=== PATIENT | male | born 1945 | race Caucasian/White ===

== ENCOUNTER 2016-10-05 05:09 | Emergency (ER) | payer MEDICARE, OTHER ==
[~2016-10-05] VITALS: Ht 172.7 cm; Wt 83.6 kg
[~2016-10-05 05:09] MED LIST: ASPIRIN 32325 MG/TAB PO; ASPIRIN E.C. 8181 MG PO; ATROVENT NASAL15 ML NS; BYSTOLIC5 MG PO; CRESTOR 10MG10 MG PO; FLONASE NASAL S16 GM NS; IMDUR 60MG60 MG/TAB PO; LANTUS100 U/ML SQ; LIPOFEN150 MG PO; LISINOPRIL20 MG PO; LUNESTA3 MG PO; MELATONIN1 M1 PO; METOPROLOL25 MG PO; NOVOLOG FLEX100 U/ML SQ; PLAVIX 75MG TAB75 MG PO; PROSCAR PO; SYNTHROID0.112 MG PO; SYNTHROID0.125 MG/T PO; SYNTHROID0.137 MG PO
[2016-10-05 05:14] VITALS: TEMP 96.9
[2016-10-05 05:31] LABS: BASO % 0.3 % (0.0-2.0); EOS # 0.2 (0.0-0.7); EOS % 6.1 % (0-4.0); GRAN # 2.6 (1.4-6.5); GRAN % 64.5 % (42.2-75.2); LYMPH # 0.7 (1.2-3.4); MEAN CELL VOLUME 84 fl (80.0-100.0); MEAN CORPUSCULAR HGB CONC 32 g/dl (33.0-37.0); MEAN PLATELET VOLUME 12.1 fl (7.4-10.4); MONO # 0.4 (0.1-0.6); MONO % 10.6 % (1.7-9.3); PLATELET COUNT 247 K/mm3 (130-400); RED BLOOD COUNT 4.34 M/mm3 (4.20-5.60); REDCELL DISTRIBUTION WIDTH-CV 14.5 % (11.5-14.5)
[2016-10-05 05:37] LABS: HEMATOCRIT 36.6 % (42.0-52.0); HEMOGLOBIN 11.8 g/dl (13.5-18.0); MEAN CORPUSCULAR HEMOGLOBIN 27 pg (27.0-31.0)
[2016-10-05 05:40] LABS: INR 1.1 (0.8-3.0); PROTHROMBIN TIME 12.6 SECONDS (9.7-12.8)
[2016-10-05] MEDS ORDERED: LIPITOR20 MG (05:40)
[2016-10-05 05:42] LABS: ALANINE AMINOTRANSFERASE 30 U/L (21-72); ALBUMIN 3.8 gm/dL (3.5-5.0); ALKALINE PHOSPHATASE 43 U/L (50-136); ANION GAP 10 mmol/L (7-16); BLOOD UREA NITROGEN 27 mg/dL (9-20); CALCIUM 8.8 mg/dL (8.4-10.2); CARBON DIOXIDE 25 mmol/L (22-30); CHLORIDE 100 mmol/L (98-107); GLUCOSE 182 mg/dL (74-106); LIPASE 47 U/L (23-300); POTASSIUM 4.3 mmol/L (3.4-5.0); SODIUM 135 mmol/L (137-145); TOTAL PROTEIN 6.9 gm/dL (6.4-8.2)
[2016-10-05 05:43] LABS: PARTIAL THROMBOPLASTIN TIME 26.1 SECONDS (26.0-37.0)
[2016-10-05 05:53] LABS: B-TYPE NATRIURETIC PEPTIDE 399 pg/mL (0-125)
[2016-10-05 06:07] LABS: TROPONIN-I < 0.012 ng/mL (0.000-0.034)
[2016-10-05 09:07] VITALS: BP 150/67; PULSE 56
== END 2016-10-05 09:07 | disposition home or self-care (01) ==
LOC: COL.ER 05:09
PROVIDERS: Emergency Medicine
DX: K29.60 Other gastritis without bleeding (principal); R10.12 Left upper quadrant pain; I10 Essential (primary) hypertension; E11.9 Type 2 diabetes mellitus without complications; I25.10 Atherosclerotic heart disease of native coronary artery without angina pectoris; Z95.1 Presence of aortocoronary bypass graft; Z90.49 Acquired absence of other specified parts of digestive tract
CPT/HCPCS: J3010; J7030

== ENCOUNTER → 2017-03-07 | Outpatient (CLI) | payer MEDICARE, OTHER ==
[~2017-03-07] MED LIST changes: +LIPITOR20 MG
== END ==
LOC: COL.RAD 09:29
DX: I65.23 Occlusion and stenosis of bilateral carotid arteries (principal)
CPT/HCPCS: Q9967

== ENCOUNTER → 2017-03-31 | Outpatient (CLI) | payer MEDICARE, OTHER | LOC: COL.RAD 10:49 | DX: M79.605 Pain in left leg (principal) ==

== ENCOUNTER 2019-07-05 10:24 | Day surgery (SDC) | payer MEDICARE, OTHER ==
[~2019-07-05] VITALS: Ht 172.7 cm; Wt 85.0 kg
[2019-07-05] VITALS (8 sets, daily range): BP systolic 94–128; BP diastolic 45–60; PULSE 57–72; TEMP 97.2
[~2019-07-05 10:24] MED LIST changes: +SYNTHROID 0.10.15 MG PO; -SYNTHROID0.137 MG PO
[2019-07-05] MEDS ORDERED: ELIQUIS 5MG PO (11:12)
[2019-07-05 11:13] LABS: POTASSIUM 4.5 mmol/L (3.4-5.0)
[2019-07-05] MEDS ORDERED: PRINIVIL5 MG PO (11:13)
[2019-07-05] MEDS ORDERED: NORVASC 10MG10 MG PO (11:14)
[2019-07-05 11:22] LABS: INR 1.4 (0.8-3.0); PROTHROMBIN TIME 16.1 SECONDS (9.7-12.8)
[2019-07-05 11:48] LABS: THYROID STIMULATING HORMONE 2.45 uIU/mL (0.465-4.680)
[2019-07-05] MEDS ORDERED: CORDARONE200 MG/TAB PO (12:29)
--- NOTE | 2019-07-05 13:40 | NUR ---
Bedside report received from Edward RN. Pt is sitting up in high fowlers, awake and alert, p,w,d,. sinus rhythm on monitor 40's.
--- NOTE | 2019-07-05 14:13 | NUR ---
Pt resting comfortably, he was able to take sips of water with no problem. pt now eating a bowl of soup while resting in high fowlers, no problems swallowing noted. wctm.
--- NOTE | 2019-07-05 15:15 | NUR ---
pt ready to go home. he has remained in sr 60's for most of his recovery, has been able to eat with no problem, has ambulated to br and back with steady gait. is en route. dc instructions were reviewed with patient. iv dc'd, cath intact. pt is escorted to exit via wheelchair.
== END 2019-07-05 18:00 | disposition home or self-care (01) ==
LOC: COL.CAR 10:24
PROVIDERS: Internal Medicine Interventional Cardiology
DX: I48.91 Unspecified atrial fibrillation (principal); I48.3 Typical atrial flutter; I25.10 Atherosclerotic heart disease of native coronary artery without angina pectoris; I49.5 Sick sinus syndrome; E11.9 Type 2 diabetes mellitus without complications; E78.5 Hyperlipidemia, unspecified; E03.9 Hypothyroidism, unspecified; I10 Essential (primary) hypertension; N28.9 Disorder of kidney and ureter, unspecified; G47.33 Obstructive sleep apnea (adult) (pediatric); N40.0 Benign prostatic hyperplasia without lower urinary tract symptoms; Z79.4 Long term (current) use of insulin; Z79.82 Long term (current) use of aspirin; Z79.02 Long term (current) use of antithrombotics/antiplatelets; Z95.1 Presence of aortocoronary bypass graft; Z86.73 Personal history of transient ischemic attack (TIA), and cerebral infarction without residual deficits; Z87.891 Personal history of nicotine dependence; Z82.49 Family history of ischemic heart disease and other diseases of the circulatory system; Z83.3 Family history of diabetes mellitus; Z91.013 Allergy to seafood
CPT/HCPCS: J2704; J3010; J7030

== ENCOUNTER 2019-08-16 13:47 | Inpatient (IN) | payer MEDICARE, OTHER ==
[~2019-08-16] VITALS: Ht 172.7 cm; Wt 84.1 kg
[~2019-08-16 13:47] MED LIST changes: +CORDARONE200 MG/TAB PO; +ELIQUIS 5MG PO; +NORVASC 10MG10 MG PO; +PRINIVIL5 MG PO
[2019-08-16] MEDS ORDERED: CORDARONE200 MG/TAB PO (14:14)
[2019-08-16 15:02] LABS: BASO % 0.6 % (0.0-2.0); EOS # 0.2 (0.0-0.7); EOS % 2.3 % (0-4.0); GRAN # 5.4 (1.4-6.5); GRAN % 78.4 % (42.2-75.2); HEMATOCRIT 37.7 % (42.0-52.0); HEMOGLOBIN 12.2 g/dl (13.5-18.0); LYMPH # 0.9 (1.2-3.4); LYMPH % 12.3 % (20.0-51.0); MEAN CELL VOLUME 86 fl (80.0-100.0); MEAN CORPUSCULAR HEMOGLOBIN 28 pg (27.0-31.0); MEAN CORPUSCULAR HGB CONC 32 g/dl (33.0-37.0); MEAN PLATELET VOLUME 12.6 fl (7.4-10.4); MONO # 0.4 (0.1-0.6); MONO % 6.1 % (1.7-9.3); PLATELET COUNT 264 K/mm3 (130-400); RED BLOOD COUNT 4.37 M/mm3 (4.20-5.60); REDCELL DISTRIBUTION WIDTH-CV 14.5 % (11.5-14.5)
[2019-08-16 15:07] LABS: INR 1.3 (0.8-3.0); PROTHROMBIN TIME 15.4 SECONDS (9.7-12.8)
[2019-08-16 15:35] LABS: ALBUMIN 4.3 gm/dL (3.5-5.0); BILIRUBIN,TOTAL 0.4 mg/dL (0.0-1.0); CALCIUM 9.6 mg/dL (8.4-10.2); CREATININE, serum 2.2 (0.66-1.25); POTASSIUM 4.6 mmol/L (3.4-5.0); TOTAL PROTEIN 7.2 gm/dL (6.4-8.2)
--- NOTE | 2019-08-16 20:56 | NUR ---
Report received from Dean Bell CRNA
--- NOTE | 2019-08-16 21:38 | NUR ---
Report received from Rc RAMIRES.
[2019-08-16 22:00] VITALS: BP 100/35; PULSE 59; TEMP 98.4
--- NOTE | 2019-08-16 22:00 | NUR ---
Pt arrived to surgical unit via bed from OR. Pt is awake and drowsy. No acute distress noted. VSS. Respirations even and unlabored. Lungs clear. Spo2 stable on room air. Heart rhythm regular. Pulses equal. Abdomen soft, nontender. BS+. Pt did not void in OR per report. Urinal provided to patient. IVF infusing to RH Iv site. Surgical incisions on L fingers covered with dressing- clean dry and intact. Hand is splinted. Arm is wrapped in alan wrap with sling. Pt is unable to feel L hand d/t surgical block. He is unable to move them. Hand is warm and cap refil <3 seconds. Pt able to feel pressure/touch in L upper arm, but reports tingling/numbness. Pt is alert and oriented. Denies needs at this time.
[2019-08-16 22:15] VITALS: BP 120/68; PULSE 58; TEMP 98.3
[2019-08-16 22:30] VITALS: BP 122/46; PULSE 59; TEMP 98.4
--- NOTE | 2019-08-16 22:30 | NUR ---
Pt and decided they are not comfortable having the patient go home tonight. Pt instructed that it would be a few more hours before he could meet criteria. Pt has drank some water, but denies desire to eat anything. Pt has not voided. VS remain stable.
[2019-08-16 22:45] VITALS: BP 129/57; PULSE 62; TEMP 98.4
[2019-08-16 23:15] VITALS: BP 144/61; PULSE 65; TEMP 98.4
[2019-08-16 23:45] VITALS: BP 147/55; PULSE 70; TEMP 98.3
--- NOTE | 2019-08-17 | NUR ---
Pt resting in bed. No distress noted. Pt continues to deny pain. Feeling to L arm and hand are increasing. Pt is able to move L thumb now and is able to identify area being touched. Cap refill <3 seconds. Color is appropriate. Pt voided 350 cc clear, sarwat urine in the urinal. Pt has not drank very much water. PO fluids encouraged. IVF still infusing.
[2019-08-17 00:45] VITALS: BP 155/59; PULSE 75; TEMP 98.5
[2019-08-17 01:45] VITALS: BP 149/65; PULSE 73; TEMP 98.3
--- NOTE | 2019-08-17 06:30 | NUR ---
Pt slept periodically throughout the night with minimal complaints. Post op VSS. Pt has regained feeling and movement in L hand and arm. Ice pack in place. Urinary output is adequate. Taking PO fluids appropriately. IV converted to INT at 0400. PRN pain medication given this AM. Pt rating pain 4/10 in L hand.
[2019-08-17 07:32] VITALS: BP 147/46; PULSE 81; TEMP 98.3
--- NOTE | 2019-08-17 07:47 | NUR ---
RECEIVED REPORT FROM CHIEF ENGINEER PRODUCTION NURSE. PAGED TABITHA AGUILAR (FOR DR RAHEEM SALAZAR) TO CLARIFY DISCHARGE RX MEDS AND ADDITIONAL POST OP ORDERS NEEDED. PATIENT'S AM FSBS 206, HAS NO ORDERS FOR RESUMING OF HOME INSULIN. WAITING [employer] BACK FROM [facility].
--- NOTE | 2019-08-17 07:55 | NUR ---
REPORTS RECEIVED FROM CAR STORER NURSE.
--- NOTE | 2019-08-17 08:06 | NUR ---
SPOKE WITH [facility], INFORMED OF PATIENT'S ROOM #, INFORMED OF OBSERVING HOME DISMISSAL RX AND PA WILL SEE PATIENT THIS MORNING TO WRITE RX FOR HOME. PATIENT INFORMED OF PA TO SEE HIM PRIOR TO LEAVING HOSPITAL TODAY.
--- NOTE | 2019-08-17 08:45 | NUR ---
Bedside report from Kerry RN with Ana, RN in training on day shift. Pt in bed with HOB @45*, alert, pleasant, conversational. Agree with Ana's assessment, noted no edema to BLE, donned gripper socks for safety and edu pt about fall precautions, pt verbalizes understanding. Urine character per pt report, using urinal indep at bedside. RH INT w/o infiltration/phlebitis. Lele PO well, no IVF. Sling to LUE in place, elevated on pillows, ice pack in place. Reviewed plan for discharge, pt ate breakfast, no orders for home insulin, pt's to pick him up.
--- NOTE | 2019-08-17 08:51 | NUR ---
LUE is splinted, dressing in place, thumb exposed, 2 cm scant sanguinous shadowing showing through distal end of dressing.
--- NOTE | 2019-08-17 09:56 | NUR ---
PATIENT HAD ICE TO LEFT HAND DOCTOR INSTRUCTED, REINFORCED TO PATIENT TO KEEP LEFT HAND UP MUCH POSSIBLE. OBSERVED SHADOWING/DRAINAGE TO DISTAL END OF LEFT HAND DRESSING. DRESSING TO LEFT HAND INTACT WITH CHANDNI/KERLIX WRAP TO LEFT HAND FINGERS WITH LEFT THUMB UNWRAPPED AND WIGGLES LEFT THUMB ON COMMAND. REPORTS THROBBING SENSATION TO LEFT INDEX FINGER AND HAS THROBBING DISCOMFORT TO LEFT HAND FINGERS, UNABLE TO OBSERVE LEFT HAND FINGERS DUE TO DRESSING/KERLIX-CHANDNI WRAP INTACT. REPORTS ABLE TO MOVE LEFT HAND FINGERS INDEPENDENTLY.
--- NOTE | 2019-08-17 10:37 | NUR ---
DISCHARGE INSTRUCTIONS REVIEWED WITH PATIENT AND SPOUSE ON RX MEDS NORCO/KEFLEX, POST OP FINGER AMP SX HOME CARE/WHEN TO CALL DOCTOR, CONFIRMED PATIENT UNDERSTANDING TO EXPECT CALL FROM ORTHO OFFICE FOR SCHEDULING OF FOLLOW UP APPT. REVIEWED WITH PATIENT DISCHARGE ORDERS TO RESUME HOME MEDS, HOME MEDS LIST REVIEWED FOR LAST DOSE TAKEN. NO FURTHER QUESTIONS OR CONCERNS EXPRESSED VIA PATIENT AND/OR SPOUSE. PATIENT ESCORTED OFF UNIT VIA WHEELCHAIR BY STAFF AND TO TAKE PATIENT HOME VIA PRIVATE CAR.
== END 2019-08-17 10:20 | disposition home or self-care (01) | DRG 514 ==
LOC: COL.ER 13:47 → SURG 19:34
PROVIDERS: Orthopaedic Surgery; Physician Assistant; ADMIT Emergency Medicine
PROC: 0HQGXZZ Repair Left Hand Skin, External Approach (ICD-10-PCS; 2019-08-16)
PROC: 0LQ80ZZ Repair Left Hand Tendon, Open Approach (ICD-10-PCS; principal; 2019-08-16 19:30)
PROC: 0PBV0ZZ Excision of Left Finger Phalanx, Open Approach (ICD-10-PCS; 2019-08-16 19:30)
PROC: 0X6P0Z3 Detachment at Left Index Finger, Low, Open Approach (ICD-10-PCS; 2019-08-16 19:30)
DX: S66.123A Laceration of flexor muscle, fascia and tendon of left middle finger at wrist and hand level, initial encounter (principal); S68.121A Partial traumatic metacarpophalangeal amputation of left index finger, initial encounter; S62.633A Displaced fracture of distal phalanx of left middle finger, initial encounter for closed fracture; S64.22XA Injury of radial nerve at wrist and hand level of left arm, initial encounter; S66.125A Laceration of flexor muscle, fascia and tendon of left ring finger at wrist and hand level, initial encounter; S61.217A Laceration without foreign body of left little finger without damage to nail, initial encounter; E11.42 Type 2 diabetes mellitus with diabetic polyneuropathy; E03.9 Hypothyroidism, unspecified; I10 Essential (primary) hypertension; D64.9 Anemia, unspecified; I25.10 Atherosclerotic heart disease of native coronary artery without angina pectoris; G47.33 Obstructive sleep apnea (adult) (pediatric); W27.0XXA Contact with workbench tool, initial encounter; Y93.89 Activity, other specified; Y92.69 Other specified industrial and construction area as the place of occurrence of the external cause; Y99.8 Other external cause status; Z95.1 Presence of aortocoronary bypass graft; Z79.01 Long term (current) use of anticoagulants
CPT/HCPCS: J0690; J2250; J2405; J2704; J2795; J3010; J7030; J7042

== ENCOUNTER → 2020-02-27 | Outpatient (CLI) | payer MEDICARE, OTHER | LOC: COL.VAS 12:06 | DX: M79.89 Other specified soft tissue disorders (principal) ==

== ENCOUNTER 2021-03-12 11:38 | Day surgery (SDC) | payer MEDICARE, OTHER ==
[2021-03-12] VITALS (9 sets, daily range): BP systolic 92–130; BP diastolic 52–61; PULSE 50–57; TEMP 98
[~2021-03-12] VITALS: Ht 172.7 cm; Wt 85.2 kg
[~2021-03-12 11:38] MED LIST changes: -IMDUR 60MG60 MG/TAB PO; +ISOSORBIDE MON120 MG PO; +PACERONE100 MG PO
[2021-03-12] MEDS ORDERED: TOPROL XL 50MG50 MG PO (12:40)
[2021-03-12 13:12] LABS: HEMOGLOBIN 10.8 g/dl (13.5-18.0); MEAN CELL VOLUME 85 fl (80.0-100.0); MEAN CORPUSCULAR HEMOGLOBIN 27 pg (27.0-31.0); MEAN CORPUSCULAR HGB CONC 32 g/dl (33.0-37.0); MEAN PLATELET VOLUME 12.1 fl (7.4-10.4); PLATELET COUNT 235 K/mm3 (130-400); RED BLOOD COUNT 3.96 M/mm3 (4.20-5.60); REDCELL DISTRIBUTION WIDTH-CV 14.8 % (11.5-14.5)
[2021-03-12 13:20] LABS: INR 1.1 (0.8-3.0); PROTHROMBIN TIME 12.1 SECONDS (9.7-12.8)
[2021-03-12 13:22] LABS: CALCIUM 9.2 mg/dL (8.4-10.2); CREATININE, serum 1.87 (0.66-1.25); POTASSIUM 4.6 mmol/L (3.4-5.0)
[2021-03-12 13:23] LABS: PARTIAL THROMBOPLASTIN TIME 28.4 SECONDS (26.0-37.0)
[2021-03-12 13:24] LABS: HEMATOCRIT 33.7 % (42.0-52.0)
--- NOTE | 2021-03-12 14:18 | NUR ---
SEE MERGE FOR ALL MEDICATION ADMINSTRATION TIMES, INTRA AND POST SEDATION ASSESSMENTS
--- NOTE | 2021-03-12 15:00 | NUR ---
PT back to express unit after negative heart cath. pt is alert, no distress, rt groin puncture site dressed with safeguard dressing, site is soft, cms intact distal. pt on monitor, Sinus keny on monitor. lunch ordered. call light in reach. pt received lasix prior to return from earthmoving labourer, and per dr. doll, remainder of 1/2ns 1000cc bag infusing wide open.
--- NOTE | 2021-03-12 16:30 | NUR ---
PT HAS BEEN DOING VERY WELL DURING HIS RECOVERY, HE LAID FLAT HOB 10 DEG FOR 1ST HOUR. HOB ELEVATED TO 30DEG WHEN PT'S DINNER ARRIVED. PT ATE SOME DINNER WITH NO PROBLEM. I HAVE REVIEWED DC AND FU INSTRUCTIONS WITH PT, AND HE DENIES ANY QUESTIONS. BEDREST WILL BE COMPLETE AT 1700.
--- NOTE | 2021-03-12 17:35 | NUR ---
PT escorted to exit via wheelchair at this time. Pt has been up and ambulatory since 1700 with no problem, gait is steady. Safeguard dressing was replaced with gauze dressing using sterile technique. covered with tegaderm. site remains soft, cms remains intact distal. iv dc'd with cath intact, dressing applied.
== END 2021-03-12 17:52 | disposition home or self-care (01) ==
LOC: COL.CAR 11:38
PROVIDERS: Internal Medicine Interventional Cardiology
DX: I25.10 Atherosclerotic heart disease of native coronary artery without angina pectoris (principal); I47.1 Supraventricular tachycardia; I10 Essential (primary) hypertension; I65.23 Occlusion and stenosis of bilateral carotid arteries; I48.92 Unspecified atrial flutter; E11.9 Type 2 diabetes mellitus without complications; E78.5 Hyperlipidemia, unspecified; E03.9 Hypothyroidism, unspecified; Z95.818 Presence of other cardiac implants and grafts; R94.39 Abnormal result of other cardiovascular function study; Z79.899 Other long term (current) drug therapy; Z79.890 Hormone replacement therapy; Z79.82 Long term (current) use of aspirin
CPT/HCPCS: C1760; C1769; C1887; C1894; J1644; J1940; J2250; J3010; Q9967

== ENCOUNTER 2021-09-29 07:57 | Day surgery (SDC) | payer MEDICARE, OTHER ==
[~2021-09-29] VITALS: Ht 172.7 cm; Wt 85.4 kg
[~2021-09-29 07:57] MED LIST changes: +PRINIVIL20 MG PO; -PRINIVIL5 MG PO; +PROSCAR 5MG5 MG PO; -PROSCAR PO; +TOPROL XL 50MG50 MG PO
--- NOTE | 2021-09-29 09:37 | NUR ---
Dr. Don at pt's bs. Pt is in sinus rhythm and procedure is to be cancelled per DR. Don.
[2021-09-29 10:19] VITALS: BP 133/72; PULSE 96; TEMP 97.9
[2021-09-29 10:29] LABS: POTASSIUM 4.7 mmol/L (3.5-4.5)
[2021-09-29 10:31] LABS: INR 1.7 (0.8-3.0); PROTHROMBIN TIME 18.5 SECONDS (9.7-12.8)
[2021-09-29 10:56] LABS: THYROID STIMULATING HORMONE 0.764 uIU/mL (0.350-4.940)
[2021-09-29 11:50] VITALS: BP 87/55; PULSE 82
--- NOTE | 2021-09-29 11:58 | NUR ---
bs report received from Miki RAMIRES. Pt is awake and alert resting in high fowlers on cot. reg and unlabored respirations. drinking water with no problem. call light in reach and at bedside.
[2021-09-29 12:00] VITALS: BP 102/54; PULSE 81
[2021-09-29 12:05] VITALS: BP 102/52; PULSE 82
[2021-09-29 12:20] VITALS: BP 106/63; PULSE 80
[2021-09-29 12:34] VITALS: BP 125/77; PULSE 84
--- NOTE | 2021-09-29 12:41 | NUR ---
Pt did well during his recovery. Pt is now up and about in room with steady gait. I have reviewed dc/fu and rx instructions with pt and his . They both verbalize understanding. IV is dc'd with cath intact, dressing was applied. Pt is escorted to exit via wheelchair.
== END 2021-09-29 12:41 | disposition home or self-care (01) ==
LOC: COL.CAR 07:57
PROVIDERS: Internal Medicine Cardiovascular Disease
DX: I48.0 Paroxysmal atrial fibrillation (principal); I10 Essential (primary) hypertension; I25.10 Atherosclerotic heart disease of native coronary artery without angina pectoris; I65.29 Occlusion and stenosis of unspecified carotid artery; I48.92 Unspecified atrial flutter; E11.9 Type 2 diabetes mellitus without complications; E78.5 Hyperlipidemia, unspecified; E03.9 Hypothyroidism, unspecified; G47.33 Obstructive sleep apnea (adult) (pediatric); E07.9 Disorder of thyroid, unspecified; Z79.01 Long term (current) use of anticoagulants; Z90.89 Acquired absence of other organs; Z87.891 Personal history of nicotine dependence; Z99.89 Dependence on other enabling machines and devices; Z95.0 Presence of cardiac pacemaker; Z79.82 Long term (current) use of aspirin; Z79.899 Other long term (current) drug therapy; Z79.890 Hormone replacement therapy; Z79.4 Long term (current) use of insulin; Z86.73 Personal history of transient ischemic attack (TIA), and cerebral infarction without residual deficits
CPT/HCPCS: J0330; J2370; J2704; J7030

== ENCOUNTER 2021-11-16 07:01 | Day surgery (SDC) | payer OTHER ==
[~2021-11-16] VITALS: Ht 172.8 cm; Wt 87.9 kg
[~2021-11-16 07:01] MED LIST changes: +TOPROL XL 25MG25 MG PO; -TOPROL XL 50MG50 MG PO
[2021-11-16 08:20] LABS: POTASSIUM 4.6 mmol/L (3.5-4.5)
[2021-11-16 08:30] LABS: INR 1.8 (0.8-3.0); PROTHROMBIN TIME 19.9 SECONDS (9.7-12.8)
[2021-11-16 08:32] VITALS: BP 125/64; PULSE 76; TEMP 97.9
[2021-11-16 08:47] LABS: THYROID STIMULATING HORMONE 0.76 uIU/mL (0.350-4.940)
[2021-11-16] MEDS ORDERED: PACERONE400 MG PO (10:15)
[2021-11-16] MEDS ORDERED: PACERONE200 MG PO (10:16)
[2021-11-16 10:18] VITALS: BP 94/46; PULSE 60
[2021-11-16 10:30] VITALS: BP 109/52; PULSE 60
[2021-11-16 10:45] VITALS: BP 119/62; PULSE 61
[2021-11-16 11:00] VITALS: BP 91/59; PULSE 66
[2021-11-16 11:15] VITALS: BP 108/56; PULSE 61
--- NOTE | 2021-11-16 11:45 | NUR ---
Discharge instructions given to pt.Pt verbalizes understanding.INT removed,catheter tip intact.pt escorted out via wheelchair by this nurse.
== END 2021-11-16 12:47 ==
LOC: COL.CAR 07:01
PROVIDERS: Internal Medicine Interventional Cardiology
DX: I48.92 Unspecified atrial flutter (principal); I48.0 Paroxysmal atrial fibrillation; E11.9 Type 2 diabetes mellitus without complications; E03.9 Hypothyroidism, unspecified; G47.33 Obstructive sleep apnea (adult) (pediatric); Z79.01 Long term (current) use of anticoagulants; Z95.5 Presence of coronary angioplasty implant and graft; Z79.899 Other long term (current) drug therapy; Z95.1 Presence of aortocoronary bypass graft
CPT/HCPCS: J2704; J7120

== ENCOUNTER → 2022-12-28 | Outpatient (CLI) | payer MEDICARE, OTHER ==
[~2022-12-28] MED LIST changes: +PACERONE200 MG PO; +PACERONE400 MG PO
[2022-12-28 11:19] LABS: ALBUMIN 3.6 gm/dL (3.4-4.8); CALCIUM 9.1 mg/dL (8.4-10.2); CREATININE, serum 1.8 mg/dL (0.72-1.25); PHOSPHOROUS 3.3 mg/dL (2.3-4.7); POTASSIUM 5.3 mmol/L (3.5-4.5)
[2022-12-28 11:27] LABS: TROPONIN-I 0.017 ng/mL (0.00-0.033)
== END ==
LOC: COL.LAB 10:37
PROVIDERS: Nurse Practitioner
DX: R07.89 Other chest pain (principal)

== ENCOUNTER 2023-10-02 04:26 | Emergency (ER) | payer MEDICARE, OTHER ==
[~2023-10-02] VITALS: Ht 172.7 cm; Wt 84.1 kg
[2023-10-02 04:31] VITALS: TEMP 97.6
[2023-10-02 04:54] LABS: BASO % 0.7 % (0.0-2.0); EOS # 0.1 K/mm3 (0.0-0.7); EOS % 1.9 % (0.0-4.0); GRAN # 3.9 K/mm3 (1.4-6.5); GRAN % 68.5 % (42.2-75.2); HEMATOCRIT 39.8 % (42.0-52.0); HEMOGLOBIN 12.7 g/dl (13.5-18.0); LYMPH # 1.1 K/mm3 (1.2-3.4); LYMPH % 19.5 % (20.0-51.0); MEAN CELL VOLUME 86 fl (80.0-100.0); MEAN CORPUSCULAR HEMOGLOBIN 28 pg (27-31); MEAN CORPUSCULAR HGB CONC 32 g/dl (33.0-37.0); MEAN PLATELET VOLUME 11.6 fl (7.4-10.4); MONO # 0.5 K/mm3 (0.1-0.6); MONO % 8.7 % (1.7-9.3); PLATELET COUNT 257 K/mm3 (130-400); RED BLOOD COUNT 4.62 M/mm3 (4.20-5.60); REDCELL DISTRIBUTION WIDTH-CV 15.6 % (11.5-14.5)
[2023-10-02 05:02] LABS: INR 1.1 (0.8-3.0); PROTHROMBIN TIME 11.6 SECONDS (9.7-12.8)
[2023-10-02 05:22] LABS: ALBUMIN 3.7 gm/dL (3.4-4.8); BILIRUBIN,TOTAL 0.4 mg/dL (0.2-1.2); CALCIUM 9.9 mg/dL (8.4-10.2); CREATININE, serum 1.28 mg/dL (0.72-1.25); POTASSIUM 4.4 mmol/L (3.5-4.5); TOTAL PROTEIN 7.2 gm/dL (6.2-8.1)
[2023-10-02 05:28] LABS: TROPONIN-I 0.014 ng/mL (0.00-0.033)
[2023-10-02] MEDS ORDERED: TOPROL XL 25MG25 MG PO (05:32)
[2023-10-02] MEDS ORDERED: PROSCAR 5MG5 MG PO (05:32)
[2023-10-02] MEDS ORDERED: SYNTHROID0.075 MG/T PO (05:33)
[2023-10-02] MEDS ORDERED: ASPIRIN 81M81 MG/TA2 PO (05:33)
[2023-10-02] MEDS ORDERED: CRESTOR 10MG10 MG PO (05:34)
[2023-10-02] MEDS ORDERED: LANTUS100 U/ML SQ (05:35)
[2023-10-02] MEDS ORDERED: NOVOLOG 100U100 U/M1 (05:36)
[2023-10-02] MEDS ORDERED: ATROVENT INHALE14 GM IH (05:36)
[2023-10-02] MEDS ORDERED: PLAVIX 75MG TAB75 MG PO (05:37)
[2023-10-02] MEDS ORDERED: COZAAR 25MG25 MG/TAB PO (05:37)
[2023-10-02 05:38] LABS: PARTIAL THROMBOPLASTIN TIME 30.1 SECONDS (26.0-37.0)
[2023-10-02] MEDS ORDERED: IMDUR 60MG60 MG/TAB PO (05:39)
[2023-10-02 08:14] VITALS: BP 169/70; PULSE 75
== END 2023-10-02 08:04 | disposition short-term general hospital (02) ==
LOC: COL.ER 04:26
PROVIDERS: Emergency Medicine
DX: I21.4 Non-ST elevation (NSTEMI) myocardial infarction (principal); I25.119 Atherosclerotic heart disease of native coronary artery with unspecified angina pectoris; D64.9 Anemia, unspecified; R79.81 Abnormal blood-gas level; Z79.02 Long term (current) use of antithrombotics/antiplatelets; Z79.82 Long term (current) use of aspirin; Z95.1 Presence of aortocoronary bypass graft
CPT/HCPCS: J1644; J2305

== ENCOUNTER → 2024-02-06 | Outpatient (CLI) | payer MEDICARE ==
[~2024-02-06] MED LIST changes: +ASPIRIN 81M81 MG/TA2 PO; +ATROVENT INHALE14 GM IH; +COZAAR 25MG25 MG/TAB PO; +IMDUR 60MG60 MG/TAB PO; +NOVOLOG 100U100 U/M1; +SYNTHROID0.075 MG/T PO
== END ==
LOC: COL.RAD 13:14
DX: R20.0 Anesthesia of skin (principal)